=== PATIENT | female | born 1980 | race Two or more races ===

== ENCOUNTER 2017-06-12 22:37 | Emergency (ER) | payer OTHER ==
[2017-06-12 22:46] VITALS: BP 112/48; PULSE 90; TEMP 98.9
--- NOTE | 2017-06-12 23:04 | PDOC ---
History of Present Illness - General Chief Complaint: Wound Stated Complaint: WOUND Time Seen by Provider: 06/12/17 22:56 History Source: Patient - History of Present Illness Initial Comments: 06/12/17 23:06 36 year old female s/p trip and fall c/o abrasion and laceration to left knee 1 week ago now with serosanguionous drainge to abrasion after doing yoga. patient also reports instability in left knee since fall. 06/12/17 23:40 Past History - Past Medical History Allergies/Adverse Reactions: Allergies Allergy/AdvReac Type Severity Reaction Status Date / Time No Known Allergies Allergy Verified 06/12/17 22:44 Home Medications: Ambulatory Orders Pnv No.25/Iron Fumarate/FA/Dha [-1 Capsule] 1 each PO DAILY 01/10/13 Acetaminophen [Tylenol .Regular Strength -] 650 mg PO Q3H PRN #0 tablet Ibuprofen [Motrin -] 600 mg PO Q4H PRN #0 tablet 01/12/13 Bacitracin - [Bacitracin Topical Ointment -] 1 applic TP BID #1 tube 06/13/17 Cephalexin Monohydrate [Keflex -] 250 mg PO Q8H #30 capsule 06/13/17 Asthma: No Cancer: No Cardiac Disorders: No Diabetes: No HTN: No Seizures: No Thyroid Disease: No - Suicide/Smoking/Psychosocial Hx Smoking History: Never smoked Hx Alcohol Use: No Drug/Substance Use Hx: No Hx Substance Use Treatment: No Review of Systems - Review of Systems Able to Perform ROS?: Yes Is the patient limited Icelandic proficient: No *Physical Exam - Vital Signs Last Vital Signs Temp Pulse Resp BP Pulse Ox 98.9 F 90 16 112/48 06/12/17 22:44 06/12/17 22:44 06/12/17 22:44 06/12/17 22:44 - Physical Exam General Appearance: Yes: Appropriately Dressed Extremity: positive: Normal Capillary Refill, Normal Inspection, Normal Range of Motion, Other (left knee abrasion with yellow drainage minimal surrounding cellulitis. ) Medical Decision Making - Medical Decision Making 06/13/17 00:17 A: left knee healing abrasion P: tetanus IM , knee xray negative: official read pending. *DC/Admit/Observation/Transfer Diagnosis at time of Disposition: Abrasion, left knee, initial encounter - Discharge Dispostion Disposition: HOME - Prescriptions Prescriptions: Bacitracin - [Bacitracin Topical Ointment -] 1 applic TP BID #1 tube Cephalexin Monohydrate [Keflex -] 250 mg PO Q8H #30 capsule - Referrals - Patient Instructions Printed Discharge Instructions: DI for Wound Infection Additional Instructions: keep wound clean and dry. appply bacitracin to the wound. take cephalxin as oredered. follow up with your doctor as soon as possible. return to the ER if symptoms worsen. - Post Discharge Activity
--- NOTE | 2017-06-13 00:37 | PDOC ---
*Physical Exam - Vital Signs Last Vital Signs Temp Pulse Resp BP Pulse Ox 98.9 F 90 16 112/48 06/12/17 22:44 06/12/17 22:44 06/12/17 22:44 06/12/17 22:44 - Physical Exam Extremity: positive: Other (+healing abrasion with overlying scabs to L knee, + small area of white fibrinous material, no purulent drainage, no erythema) ED Treatment Course - ADDITIONAL ORDERS Additional order review: Laboratory Results 06/12/17 11:11 Urine HCG, Qual Negative Medical Decision Making - Medical Decision Making 06/13/17 00:35 Pt seen/examined, discussed with Fab CRENSHAW. Knee without signs of infection, full ROM. XR reviewed, no obvious frx. Advised to apply ice, fani wrap, elevation. f/u with ortho in 2 weeks if sxs worsen/persist. dc home *DC/Admit/Observation/Transfer Diagnosis at time of Disposition: Abrasion, left knee, initial encounter - Discharge Dispostion Disposition: HOME - Prescriptions Prescriptions: Bacitracin - [Bacitracin Topical Ointment -] 1 applic TP BID #1 tube Cephalexin Monohydrate [Keflex -] 250 mg PO Q8H #30 capsule - Referrals - Patient Instructions Printed Discharge Instructions: DI for Wound Infection Additional Instructions: keep wound clean and dry. appply bacitracin to the wound. take cephalxin as oredered. follow up with your doctor as soon as possible. return to the ER if symptoms worsen. - Post Discharge Activity
== END 2017-06-13 00:35 | disposition home or self-care (01) ==
LOC: JER 22:37
DX: S80.212A Abrasion, left knee, initial encounter (principal); X50.1XXA Overexertion from prolonged static or awkward postures, initial encounter; Y93.42 Activity, yoga; Y92.89 Other specified places as the place of occurrence of the external cause; Y99.8 Other external cause status
CPT/HCPCS: 73562-TC-LT; 84703; 99281-25